=== PATIENT | female | born 1950 | race Caucasian/White ===

== ENCOUNTER 2019-03-13 01:18 | Emergency (ER) | payer MEDICARE ==
[~2019-03-13] VITALS: Ht 167.6 cm; Wt 77.2 kg
[2019-03-13 01:40] LABS: CLARITY,URINE CLOUDY (Clear); COLOR,URINE YELLOW (Yellow)
[2019-03-13 01:45] LABS: UA COLLECTION TYPE CLN CATCH MIDSTREAM
[2019-03-13 01:46] LABS: BACTERIA,URINE FEW /HPF (Neg); SQUAMOUS EPITHELIAL CELL,UR NONE SEEN /LPF (FEW)
[2019-03-13 01:47] LABS: RBC,URINE TNTC /HPF (0-2); WBC,URINE 30-50 /HPF (0-4)
[2019-03-13] MEDS ORDERED: morphine 2 MG/ML inj. syringe IV PRN (02:10)
[2019-03-13] MEDS ORDERED: ondansetron/PF 4mg/2ml inj IV ONE (02:10)
[2019-03-13] MEDS ORDERED: normal saline 1000ML IV soln IVB ONE (02:10)
[2019-03-13 02:30] LABS: BASOPHILS % (AUTO) 0.6 % (0-1); EOSINOPHILS # (AUTO) 0.5 X10'3 (0-0.9); EOSINOPHILS % (AUTO) 6.3 % (0-6); HEMATOCRIT 34.5 % (35.0-45.0); HEMOGLOBIN 11.5 g/dl (12.0-16.0); LYMPHOCYTES # (AUTO) 0.8 X10'3 (1.1-4.8); LYMPHOCYTES % (AUTO) 9.6 % (21-51); MEAN CORPUSCULAR HEMOGLOBIN 27.3 PG (27.0-31.0); MEAN CORPUSCULAR HGB CONC 33.4 g/dL (33.0-36.5); MEAN CORPUSCULAR VOLUME 81.7 FL (78-98); MEAN PLATELET VOLUME 9.7 FL (7.4-10.4); MONOCYTES # (AUTO) 0.7 X10'3 (0-0.9); MONOCYTES % (AUTO) 8.3 % (2-12); NEUTROPHILS % (AUTO) 75.2 % (42-75); PLATELET COUNT 127 X10'3 (140-440); RED BLOOD COUNT 4.23 X10'6 (4.20-5.60)
[2019-03-13 02:44] LABS: ALANINE AMINOTRANSFERASE 25 U/L (12-78); ALBUMIN 3.5 G/DL (3.4-5.0); ALBUMIN/GLOBULIN RATIO 1.1 (1.1-1.5); ALKALINE PHOSPHATASE 81 IU/L (46-116); ANION GAP 7 (8-16); ASPARTATE AMINO TRANSFERASE 22 U/L (10-37); BILIRUBIN,TOTAL 0.7 MG/DL (0.1-1.0); BLOOD UREA NITROGEN 14 MG/DL (7-18); CALCIUM 8.8 MG/DL (8.5-10.1); CHLORIDE 107 MMOL/L (99-107); CREATININE 1.08 MG/DL (0.40-0.90); GLUCOSE 128 MG/DL (70-104); LIPASE 217 U/L (73-393); POTASSIUM 3.6 MMOL/L (3.5-5.1); SODIUM 139 MMOL/L (135-145); TOTAL PROTEIN 6.8 G/DL (6.4-8.2); eGFR 50 ML/MIN
--- NOTE | 2019-03-13 03:33 | NUR ---
Pt's pain decreased after Morphine down to 2/10. Pt appears more comfortable and relaxed. Will continue to monitor.
--- NOTE | 2019-03-13 04:05 | NUR ---
Dr. Mckinnon made aware Pt's BP 89/35. Verbal order to bolus 500 mL NS and reassess.
[2019-03-13] MEDS ORDERED: normal saline 500ml IV soln 1,000 ML IV ONE (04:10)
[2019-03-13] MEDS ORDERED: normal saline 1000ML IV soln IV ONE (04:25)
[2019-03-13] MEDS ORDERED: iohexol 300mg/ml 100ml inj. ONE (04:26)
[2019-03-13] MEDS ORDERED: CefTRIAXone/D5W-Rocephin 1gm 50 ML IV ONE (04:45)
--- NOTE | 2019-03-13 05:15 | NUR ---
Pt's BP up to 109/[address] scanner. Pt with no complaints of feeling dizzy or lightheaded when transferring. Will continue to monitor.
[2019-03-13] MEDS ORDERED: CIPR-230 PO (05:47)
[2019-03-13 07:14] VITALS: BP 107/54
== END 2019-03-13 07:17 | disposition home or self-care (01) ==
LOC: ER 01:20
DX: R10.30 Lower abdominal pain, unspecified (principal); N12 Tubulo-interstitial nephritis, not specified as acute or chronic; E78.00 Pure hypercholesterolemia, unspecified; E03.9 Hypothyroidism, unspecified; F12.90 Cannabis use, unspecified, uncomplicated; Z79.899 Other long term (current) drug therapy
CPT/HCPCS: 36415; 74177; 80053; 81001; 83605; 83690; 84145; 85025; 87040; 87088; 96365; 96375; 99284; J0696; J2270; J2405; J7030; J7040; Q9967